=== PATIENT | male | born 2000 | race American Indian/Alaskan Native ===

== ENCOUNTER 2020-02-05 08:13 | Day surgery (SDC) | payer MEDICARE ==
[~2020-02-05 08:13] MED LIST: ceFAZolin/Water 2 GM/20 ML 2 GM/20 ML SYRINGE IV NR
[2020-02-05] MEDS ORDERED: SODIUM CHLORIDE 0.9% 1000 ML 1,000 ML ONE (09:33)
[2020-02-05 09:42] LABS: Hematocrit 30.5 % (35.5-45.6); Hemoglobin 10.4 gm/dl (11.8-15.2); Mean Corpuscular HGB Conc 34 % (32-34); Mean Corpuscular Volume 79 fl (84-94); Platelet Count 230 K/mm3 (140-440); Red Blood Count 3.85 M/mm3 (3.65-5.03); Red Cell Distribution Width 19.7 % (13.2-15.2)
[2020-02-05] MEDS ORDERED: ACETAMINOPHEN 500 MG TAB PO ONE (09:54)
--- NOTE | 2020-02-05 09:55 | Anesthesia Day of Surgery ---
Anesthesia Day of Surgery - Day of Surgery Patient Examined: Yes Patient H&P Reviewed: Yes Patient is NPO: Yes
--- NOTE | 2020-02-05 09:56 | Anesthesia Consultation ---
Anesthesia Consult and Med Hx Date of service: 02/05/20 - Airway Anesthetic Teeth Evaluation: Good, Partials ROM Head & Neck: Adequate Mental/Hyoid Distance: Adequate Mallampati Class: Class III Intubation Access Assessment: Probably Good - Pre-Operative Health Status ASA Pre-Surgery Classification: ASA3 Proposed Anesthetic Plan: General - Pulmonary Hx Smoking: Yes (CIGARS 11/2018-05/2019) Hx Asthma: No (+2FS) COPD: No Hx Pneumonia: No Hx Sleep Apnea: No (SNORES-HIGH RISK ON PRESCREEN) - Cardiovascular System Hx Hypertension: Yes Hx Heart Attack/AMI: No Hx Pacemaker: No Hx Internal Defibrillator: No Hx Heart Murmur: No - Central Nervous System Hx Seizures: No Hx Back Pain: No Hx Psychiatric Problems: Yes (Anxiety/Depression) - Endocrine Hx Renal Disease: Yes (Last HD yesterday) Hx End Stage Renal Disease: Yes (LT UPPER CHEST PERMACATH) Hx Cirrhosis: No Hx Liver Disease: No Hx Non-Insulin Dependent Diabetes: No - Hematic Hx Anemia: Yes Hx Sickle Cell Disease: No - Other Systems Hx Alcohol Use: No Hx Substance Use: No Hx Cancer: No Hx Obesity: No
[2020-02-05] MEDS ORDERED: MIDAZOLAM 2 MG/2 ML INJ IV NR (10:00)
[2020-02-05] MEDS ORDERED: CELECOXIB 200 MG CAP PO NR (10:00)
[2020-02-05] MEDS ORDERED: SODIUM CHLORIDE 0.9% 1000 ML 1,000 ML IV SCH (10:00)
[2020-02-05 10:36] LABS: Calcium 9.4 mg/dL (8.4-10.2)
[2020-02-05] MEDS ORDERED: LIDOCAINE MPF (2%) 20 MG/1 ML VIAL 5 ML ONE (10:37)
[2020-02-05] MEDS ORDERED: ONDANSETRON 4 MG/2 ML INJ ONE (10:37)
[2020-02-05] MEDS ORDERED: HYDROmorphone 1 MG/1 ML INJ ONE ×2 (10:38→13:18)
[2020-02-05] MEDS ORDERED: propofoL 200 MG/20 ML VIAL IV ONE (10:38)
[2020-02-05] MEDS ORDERED: HEPARIN 10,000 UNITS/10 ML VIAL ONE (11:15)
[2020-02-05] MEDS ORDERED: BUPIVACAINE/PF (0.5%) 5 MG/1 ML 30 ML VIAL INFILTRATI ONE ×2 (11:16→12:32)
[2020-02-05] MEDS ORDERED: SODIUM CHLORIDE 0.9% 500 ML 500 ML ONE (11:16)
[2020-02-05] MEDS ORDERED: HEPARIN 2,000 UNIT in SODIUM CHLORIDE 0.9% 500 ML 500 ML IR ONE (12:36)
[2020-02-05] MEDS ORDERED: SODIUM CHLORIDE 0.9% IRR 1,500 ML BOTTLE IR ONE (12:37)
[2020-02-05] MEDS ORDERED: SODIUM CHLORIDE 0.9% IRR 1,000 ML BOTTLE IR ONE (12:37)
[2020-02-05] MEDS ORDERED: dexAMETHasone 20 MG/5 ML VIAL ONE (13:06)
--- NOTE | 2020-02-05 14:32 | Short Stay Summary ---
Short Stay Documentation Date of service: 02/05/20 Narrative H&P: See H&P - History H&P: obtained from office - Allergies and Medications Current Medications: Allergies No Known Allergies Allergy (Unverified 01/30/20 12:08) Home Medications Medication Instructions Recorded Confirmed Last Taken Type Calcium Citrate/Vitamin D3 1 cap PO 3XW 02/04/20 02/05/20 02/04/20 15:00 History [Citracal + D Maximum Caplet] Cinacalcet HCl [Sensipar] 30 mg PO DAILY 02/04/20 02/05/20 Unknown History Ferric Citrate (Nf) [Auryxia] 420 mg PO TID 02/04/20 02/05/20 02/04/20 19:00 History Metoprolol 25 mg PO BID 02/04/20 02/05/20 02/05/20 07:00 History Tacrolimus 6 mg PO QAM 02/04/20 02/05/20 02/05/20 07:00 History Tacrolimus 7 mg PO QPM 02/04/20 02/05/20 02/04/20 19:00 History amLODIPine 10 mg PO DAILY 02/04/20 02/05/20 02/05/20 07:00 History Active Medications Celecoxib (Celebrex) 400 mg PO PREOP NR Stop: 02/05/20 23:59 Last Admin: 02/05/20 10:12 Dose: 400 mg Documented by: Cefazolin Sodium (Ancef/Sterile Water 2 Gm/20 Ml) 2 gm in 20 mls @ 80 mls/hr IV PREOP NR; Protocol Stop: 02/05/20 23:59 Sodium Chloride (Nacl 0.9% 1000 Ml) 1,000 mls @ 42 mls/hr IV DIRECT DOMINIC Last Admin: 02/05/20 10:14 Dose: 42 mls/hr Documented by: Midazolam HCl (Versed) 2 mg IV PREOP NR Stop: 02/05/20 23:59 Last Admin: 02/05/20 11:01 Dose: 2 mg Documented by: - Brief post op/procedure progress note Date of procedure: 02/12/20 Pre-op diagnosis: Complications of dialysis access Post-op diagnosis: same Procedure: Revision with Elevation of Right Arm Ellie Fistula Anesthesia: GETA Surgeon: JEET BRINK Estimated blood loss: other (300 mL) Pathology: none Condition: stable - Disposition Condition at discharge: Good Disposition: DC-01 TO HOME OR SELFCARE Short Stay Discharge Plan Activity: other (No heavy lifting with right arm for 2 weeks.) Wound: open to air, keep clean and dry, other (Okay to wash the wound with soap and water but do not soak in water.) Follow up with: JEET BRINK MD [Staff Physician] - 7 Days Prescriptions: HYDROcodone/APAP 7.5-325 [[place] 7.5/325] 1 each PO Q6HR PRN #40 tablet PRN Reason: Pain
--- NOTE | 2020-02-05 14:33 | Operative Report ---
Operative Report Operative Report: Date of Procedure: 02/05/2020 Pre-operative Diagnosis: Complications of Dialysis Access Post-operative Diagnosis: Same Procedure(s): 1. Revision with Elevation of Right Arm Ellie Arteriovenous Fistula Surgeon: Kwasi Mackay M.D. Locker Room Attendant: None Anesthesia: General Endotracheal Anesthesia EBL: 300 mL Counts: Correct Complications: None Condition: Stable Findings: Palpable thrill in the right Ellie fistula at the completion of the case. Specimen: None Indication: The patient is a 19-year-old male with a history of end-stage renal disease who has a right arm Ellie fistula as well as a right internal jugular permacath which he uses for hemodialysis. The Ellie fistula has been used for dialysis however they have had difficulty accessing the fistula secondary to his short length and depth in the proximal forearm. He is in need of revision with elevation of the fistula. He has been given the risk, benefits, and alternative procedures and consented to the procedure. Description of Procedure: The patient was brought to the operating room and laid in supine position. After general endotracheal anesthesia was achieved his right arm was prepped and draped in normal sterile fashion. A longitudinal incision was created, in the mid forearm, extending from just proximal to the arterial anastomosis to just distal to the antecubital crease. A combination of cautery and sharp dissection was used to carry the dissection down to the arteriovenous fistula. Sharp dissection was used to dissect the fistula free circumferentially. All side branches were identified and suture ligated with a combination of 3-0 and 2-0 silk sutures and then divided. Once the fistula have been dissected free throughout the incision hemostasis was achieved within the wound bed with a combination of cautery and Liliana. Hemostasis on the fistula was achieved with 6-0 and 5-0 Prolene in interrupted fashion. Once hemostasis was achieved a subcutaneous pocket was created on the medial aspect of the incision and the fistula was placed within this pocket. The fistula was secured in place with 2- 0 Vicryl interrupted fashion. Once the fistula was secured in place the wound was then anesthetized with 0.5% Marcaine and then closed in 2 layers using 3-0 Vicryl running fashion the deep dermal layer and 4-0 Monocryl in running fashion the subcuticular layer and then dressed with Dermabond. The patient tolerated the procedure well. All sponge, needle, and instrument counts were correct. Th e patient was transported to the recovery area in stable condition.
--- NOTE | 2020-02-05 17:01 | Post Anesthesia Evaluation ---
- Post Anesthesia Evaluation Patient Participated: Yes Airway Patent: Yes Stable Respiratory Function: Yes Nausea/Vomiting: No Temp > 96.8F: Yes Pain Manageable: Yes Adequeate Hydration: Yes Anesthesia Complications: No Block Receding Appropriately: Not Applicable Patient on Ventilator: No
[2020-02-05 19:32] VITALS: BP 127/72
== END 2020-02-05 08:14 | disposition home or self-care (01) ==
LOC: OR 08:13
PROVIDERS: ATTEND Surgery Vascular Surgery
DX: I12.0 Hypertensive chronic kidney disease with stage 5 chronic kidney disease or end stage renal disease (principal); N18.6 End stage renal disease; F41.9 Anxiety disorder, unspecified; F32.9 Major depressive disorder, single episode, unspecified; E78.00 Pure hypercholesterolemia, unspecified; Z99.2 Dependence on renal dialysis; Z94.0 Kidney transplant status; Z98.890 Other specified postprocedural states; Z79.899 Other long term (current) drug therapy; Z87.891 Personal history of nicotine dependence
CPT/HCPCS: 36415; 36832; 80048; 85027; J0690; J1100; J1170; J1644; J2250; J2405; J2704; J7030; J7040